=== PATIENT | female | born 1935 | race Caucasian/White ===

== ENCOUNTER 2020-02-23 10:14 | Emergency (ER) | payer MEDICARE, BC ==
--- NOTE | 2020-02-23 10:46 | ERPHSYRPT ---
- History of Present Illness Time Seen by Provider: 02/23/20 10:40 Source: patient Exam Limitations: no limitations Patient Subjective Stated Complaint: pt reports loosing her balance approx 0140 today causing her to fall and strike her head on her hardwood virgil. pt denies LOC. pt states she had to scoot across the floor so she could pull herself up to standing. pt states that her head hurts as well as her right shoulder and upper arm she believes she strained pulling herself up this morning. Triage Nursing Assessment: pt is aox3, pupils perrl, speech is clear, appropriate, afebrile, resps easy and non labored, cap refill < 3 seconds, radial pulses strong and equal, pt skin pink warm dry. slight swelling noted to the right occipital region, skin is intact. pt sensation, ROM intact. pt ambulatory to trt room with no difficulty. Physician History: 84 yo wf lost balance in kitchen at 1:30 and hit occiput. Pt also complains of R shoulder pain. She has a ROBLERO but denies LOC/chest pain/focal weakness/hip pain/ melena/hematochezia. Pain is rated an 8 but refuses any pain meds at present. Occurred: other (1:30AM) Severity: moderate Head Injury Location: occipital Method of Injury: fell Loss of Consciousness: dazed Associated Symptoms: headaches, No nausea, No vomiting, No abdominal pain, No shortness of breath, No diaphoresis, No cough, No chills, No chest pain, No fever, No loss of appetite, No malaise, No rash, No syncope Allergies/Adverse Reactions: No Known Drug Allergies Allergy (Unverified 02/23/20 10:36) Home Medications: Amlodipine Besylate 5 mg [Norvasc 5 mg] 5 mg PO DAILY 02/23/20 [History] Aspirin 81 gm Chew [Baby Aspirin 81 mg Chew] 81 mg PO DAILY 02/23/20 [ History] Bisoprolol/Hydrochlorothiazide [Bisoprolol-Hctz 2.5-6.25 mg Tb] 1 each PO DAILY 02/23/20 [History] Rosuvastatin Calcium 5 mg PO DAILY 02/23/20 [History] Hx Tetanus, Diphtheria Vaccination/Date Given: Yes Hx Influenza Vaccination/Date Given: Yes Hx Pneumococcal Vaccination/Date Given: Yes Immunizations Up to Date: Yes Travel Risk - International Travel Have you traveled outside of the country in past 3 weeks: No Have you or anyone close to you been diagnosed with or: No Do your reside in a community with a known COVID-19 case?: Yes If Yes where:: [place] - Coronavirus Screening Has patient experienced Coronavirus symptoms: No - Review of Systems Constitutional: No Symptoms Eyes: No Symptoms Ears, Nose, & Throat: No Symptoms Respiratory: No Symptoms Cardiac: No Symptoms Abdominal/Gastrointestinal: No Symptoms Genitourinary Symptoms: No Symptoms Musculoskeletal: Neck Pain Skin: No Symptoms Neurological: Headache Psychological: No Symptoms Endocrine: No Symptoms Hematologic/Lymphatic: No Symptoms Immunological/Allergic: No Symptoms - Past Medical History Neurological History: No Pertinent History ENT History: No Pertinent History Cardiac History: Hypertension Respiratory History: No Pertinent History Endocrine Medical History: No Pertinent History Musculoskeletal History: Degenerative Disk Disease, Osteoarthritis GI Medical History: No Pertinent History History: No Pertinent History Other Medical History: B TKA, L was done . - Past Surgical History Past Surgical History: Yes Cardiac: No Pertinent History Respiratory: No Pertinent History Gastrointestinal: Appendectomy, Cholecystectomy Musculoskeletal: Joint Replacement Female Surgical History: Hysterectomy - Social History Smoking Status: Never smoker Exposure to second hand smoke: No Drug Use: none Patient Lives Alone: Yes - Female History Hx Now: No - Nursing Vital Signs Nursing Vital Signs: Initial Vital Signs Temperature 98 F 02/23/20 10:22 Pulse Rate 63 02/23/20 10:22 Respiratory Rate 18 02/23/20 10:22 Blood Pressure 156/107 02/23/20 10:22 O2 Sat by Pulse Oximetry 97 02/23/20 10:22 Pain Scale Pain Intensity 6 - Genoveva Coma Score Best Eye Response (Genoveva): (4) open spontaneously Best Verbal Response ([place]): (5) oriented Best Motor Response ([place]): (6) obeys commands Genoveva Total: 15 - Physical Exam General Appearance: no apparent distress Head Injury: tenderness (R occiput ttp) Eye Exam: bilateral eye: normal inspection, PERRL, EOMI ENT Exam: airway nml, No evidence of ENT injury, No dental injury Neck Exam: other (C-spine ttp) Cardiovascular/Respiratory Exam: chest non-tender, normal breath sounds, regular rate/rhythm, heart sounds normal Gastrointestinal/Abdominal Exam: soft, non tender, no distention Pelvic Exam: not done Rectal Exam: deferred Back Exam: normal inspection, normal range of motion, No vertebral tenderness Extremity Exam: pelvis stable Mental Status Exam: alert, oriented x 3, cooperative building stonecutter Exam: normal hearing, normal speech, PERRL Motor/Sensory Exam: no motor deficit, no sensory deficit, no pronator drift DTR Exam: bicep (R): 2+, bicep (L): 2+, knee (R): 2+, knee (L): 2+ Skin Exam: normal color, warm, dry Lymphatic Exam: No adenopathy SpO2 Interpretation: normal SpO2: 97 O2 Delivery: Room Air - Course Nursing assessment & vital signs reviewed: Yes - Radiology Exams Shoulder X-ray Interpretation: Discussed w/ radiologist (Neg) - CT Exams Head CT Interpretation: Discussed w/radiologist (Nothing acute per Rad) Cervical Spine CT Interpretation: Discussed w/radiologist (Stable non-displaced L transverse process fx per phone conversation w Dr. Campos) Ordered Tests: Active Orders 24 hr Category Date Time Status CERVICAL SPINE WO CONTRAST [CT] Stat Exams 02/23/20 11:32 Completed HEAD WITHOUT CONTRAST [CT] Stat Exams 02/23/20 11:31 Completed SHOULDER Stat Exams 02/23/20 12:13 Completed - Progress Progress: improved Progress Note: 02/23/20 12:42 Pt refuses all pain meds and will take tylenol/motrin at home Counseled pt/family regarding: rad results - Departure Departure Disposition: Home Clinical Impression: Cervical transverse process fracture, Shoulder contusion, Scalp contusion Condition: Stable Critical Care Time: No Referrals: NOLBERTO HAILE MD [Primary Care Provider] - Instructions: Minor Head Injury (DC), Neck Fracture (DC) Additional Instructions: Motrin/Tylenol for pain Ice to contused areas for 12-24 hours Follow up with your family MD in 1-2 days Return to ER for increasing pain/focal weakness
--- NOTE | 2020-02-23 12:15 | XRAY ---
Indication: Head injury following fall. Multiple contiguous axial images obtained through the head without contrast. Comparison: None Age-appropriate global atrophy and minimal periventricular degenerative micro-ischemia bilaterally. No acute intracranial hemorrhage, abnormal extra-axial fluid collection, or mass effect. Fourth ventricle is midline without hydrocephalus. Bony calvarium intact. Visualized paranasal sinuses and mastoid air cells are clear. Impression: Nonacute senile brain.
[2020-02-23 12:22] VITALS: BP 172/76; PULSE 56
--- NOTE | 2020-02-23 12:32 | XRAY ---
Indication: Pain following fall. Comparison: December 25, 2019. 3 view right shoulder unchanged again demonstrating osteopenia, moderate AC degenerative arthropathy, and mild multilevel thoracic degenerative changes. No new/acute findings.
--- NOTE | 2020-02-23 12:32 | XRAY ---
Indication: Pain following fall. Multiple contiguous axial images obtained through the cervical spine. Sagittal and coronal reformatted images obtained. Comparison: None Age-appropriate osteopenia. There is nondisplaced incomplete fracture involving the left transverse process of C1. Mild/moderate multilevel degenerative changes as evidenced by endplate sclerosis/spurring and disc space narrowing greatest at the C5-C7 levels. Same C5-C7 levels demonstrates degenerative subcortical cysts. Also moderate multilevel bilateral degenerative facet hypertrophy. Additional atlantoaxial degenerative arthropathy. Base of odontoid process demonstrates 7 mm bone cyst. Sagittal and coronal reformatted images demonstrates 3 mm C3 anterolisthesis on C4. Also multilevel degenerative disc space narrowing greatest at the C5-C7 levels. No acute compression fracture. Normal appearing craniocervical junction. Normal appearing craniocervical junction. Visualized noncontrasted soft tissues demonstrates mild bilateral carotid calcifications. Minimal right lung apex fibrosis/scarring. Impression: 1. Nondisplaced fracture left transverse process C1. 2. Osteopenia and multilevel degenerative changes including grade 1 C3 spondylolisthesis. 3. Incidental C2 and C5-C7 bone cysts. Comment: Telephone report was given to Dr. Mcgovern in the ER at 1222 hrs. on February 23, 2020.
[2020-02-23 12:43] VITALS: O2SAT 97
== END 2020-02-23 12:55 | disposition home or self-care (01) ==
LOC: ED 10:14
DX: S12.9XXA Fracture of neck, unspecified, initial encounter (principal); S40.011A Contusion of right shoulder, initial encounter; M25.511 Pain in right shoulder; W01.198A Fall on same level from slipping, tripping and stumbling with subsequent striking against other object, initial encounter; Y93.89 Activity, other specified; Y92.000 Kitchen of unspecified non-institutional (private) residence as the place of occurrence of the external cause; R51 Headache; Z79.899 Other long term (current) drug therapy; I10 Essential (primary) hypertension; M19.90 Unspecified osteoarthritis, unspecified site; S00.03XA Contusion of scalp, initial encounter
CPT/HCPCS: 70450; 72125; 73030; 99284